=== PATIENT | female | born 1970 | race Caucasian/White ===

== ENCOUNTER → 2017-02-10 | Outpatient (CLI) | payer BC ==
[2017-02-10 12:06] LABS: Basophils % (A) 1 %; CH 30.7; CHCM 33.6; Eosinophils % (A) 1 %; HCT 37.7 % (34.0-46.0); HDW 2.36; Luc # (Auto) 0.08; Luc % (Auto) 2; Lymphocytes # (A) 1.1 k/uL (1.0-4.8); Lymphocytes % (A) 28 %; MCH 31.7 pg (25.0-35.0); MCHC 34.6 g/dL (31.0-37.0); MCV 91.8 fL (80.0-100.0); Mean Platelet Volume 7.1; Monocytes # (A) 0.2 k/uL (0-1.0); Monocytes % (A) 5 %; Neutrophils # (A) 2.6 k/uL (1.3-7.7); Neutrophils % (A) 64 %; RBC 4.11 m/uL (3.80-5.40); RDW 12.4 % (11.5-15.5); WBC (Perox) 4.18
[2017-02-10 12:19] LABS: Anion Gap 8 mmol/L; Blood Urea Nitrogen 20 mg/dL (7-17); Carbon Dioxide 25 mmol/L (22-30); Chloride 108 mmol/L (98-107); Glucose 90 mg/dL (74-99); Non-African American GFR(MDRD) >60 (>60 ml/min/1.73 sqM); Sodium 141 mmol/L (137-145)
== END | disposition home or self-care (01) ==
LOC: LABWHC1 11:39
PROVIDERS: ATTEND Obstetrics & Gynecology
DX: Z01.812 Encounter for preprocedural laboratory examination (principal)
CPT/HCPCS: 80051; 82565; 82947; 84520; 85025; 87086

== ENCOUNTER 2017-02-20 05:46 | Observation (INO) | payer BC ==
--- NOTE | 2017-02-15 14:15 | HP ---
DATE OF SERVICE: 02/20/2017 This is a 46-year-old female, 2, para 1-1-0-2 who presents status post ablation is 2009. The patient has remained amenorrhea but is now having severe cyclic pelvic pain in the midline and in the left lower quadrant. Patient also reports pain to deep penetration at the time of intercourse. She denies any vaginal bleeding or odor. She denies any urinary symptomatology, no hematuria, no dysuria, no urinary frequency. She has normal bowel movements which occur daily, are soft and well-formed. Patient is using over the counter medications including Naprosyn for cyclic pelvic pain but states that she would perform surgical palliation at this time. Review of systems is otherwise negative. Past medical history is negative. PAST SURGICAL HISTORY: [place] teeth extracting per Dr. Burns in 1988, [facility] ablation per Dr. Aly in 2009. CURRENT MEDICATIONS: Multivitamins daily, Naprosyn 500 mg pills 2 with food q.8 hours p.r.n. pelvic pain. ALLERGIES: None known. FAMILY HISTORY: Significant for heart disease in her brother. Hyperlipidemia in her mother and father and hypertension in her father. Reproductive history is significant for 2 vaginal deliveries, one child born with congenital diaphragmatic hernia. SOCIAL HISTORY: Patient has never been a smoker. She enjoys social alcohol only, she denies any illicit drug use. She is single and works with [employer] as a [employer]. On exam, this is a pleasant female, 5 foot 7 inches, 154 pounds, blood pressure 90/69, patient is afebrile. The HEENT exam reveals normal range of motion in the neck. No thyromegaly, no cervical lymphadenopathy. The chest is clear to auscultation in all marino anteriorly and posteriorly with no rales, rhonchi or wheezes. The cardiac exam reveals regular rate and rhythm with no murmur, click or rub. The breasts are bilaterally symmetric to infection with no skin changes, nipple discharge, axillary adenopathy or discernible lesions or masses. Abdominal exam reveals no organosplenomegaly, no ( ) tenderness, active bowel sounds, no evidence of hernia. On genital urinary examination, the external genitalia is normal, while estrogenized and without lesion or discharge. The vagina reveals no inflammatory lesions, no paravaginal defects, normal multiparous appearing cervix. Recent PAP smear is within normal limits. The uterus is tender to palpation. There are no masses noted. The contour is smooth. The position is midline. The adnexa are negative bilaterally. Rectal exam reveals normal sphincter tone, no obvious hemorrhage and no rectal masses. The skin inspection reveals no lesions, no rashes, no areas of discoloration. Neurologic examination reveals patient well oriented x3 with good judgement and intact insight, normal mood and normal affect. Pelvic ultrasound was performed on 01/16/17 revealing normal appearing adnexa sonographically, slightly enlarged uterus with no obvious fibroids, uterine measurements 9.4 x 6.5 x 5.5 cm with an endometrial thickness of 5 mm. IMPRESSION: Suspect adenomyosis with severe cyclic pelvic pain, status post ablation 7 years ago. PLAN: Consideration has been made to laparoscopic approach to hysterectomy; however, I believe the cervix can well be delivered vaginally with no laparoscopic assistance. We will, therefore proceed with vaginal hysterectomy. Ovaries will be inspected and left in situ if they are within normal limits to inspection. The patient does consent to bilateral oophorectomy if clinical judgement would warrant appropriate. We have reviewed the risks of bleeding, infection, perforation or damage to bowel, bladder, ureters, blood vessels or indeed any pelvic or abdominal organs. We have discussed the unlikely but possible need for blood transfusion and the infectious diseases to which she would be exposed. We have reviewed the risks of anesthesia to include aspiration , nerve damage, or even . The ACOG pamphlet on hysterectomy have been given to the patient and she has reviewed these materials. I believe she has no further questions or concerns. A second opinion has been offered and declined. LORENA
[2017-02-16 08:53] VITALS: BMI 23.5
[~2017-02-20 05:46] MED LIST: DEXAMETHASONE SOD PHOSPHATE 10 MG/ML 1 ML VIAL IV ONE; HYDROmorphone 1 MG/ML 1 ML SYRINGE IVP PRN; MIDAZOLAM 2 MG/2 ML VIAL IV PRN; ONDANSETRON 4 MG/2 ML VIAL IVP ONE; ceFAZolin 2 GM in SODIUM CHLORIDE 0.9% 100 ML IVPB ONE
[2017-02-20] MEDS: LACTATED RINGERS 1,000 ML IV SCH ×2 (06:42→20:32)
[2017-02-20] MEDS ORDERED: SCOPOLAMINE 1.5MG/72HR PATCH TRANSDERM ONE (06:42)
[2017-02-20] MEDS ORDERED: MIDAZOLAM 2 MG/2 ML VIAL IVP ONE (07:15)
[2017-02-20] MEDS ORDERED: SUCCINYLCHOLINE CHLORIDE 100 MG/5 ML SYR IV ONE (08:01)
[2017-02-20] MEDS ORDERED: PROPOFOL 10 MG/ML 20 ML VIAL IV ONE (08:01)
[2017-02-20] MEDS ORDERED: fentaNYL (PF) 50 MCG/ML 2 ML AMP ONE (08:01)
[2017-02-20] MEDS ORDERED: KETOROLAC 30 MG/ML 1 ML VIAL ONE (08:01)
[2017-02-20] MEDS ORDERED: MIDAZOLAM 2 MG/2 ML VIAL ONE (08:01)
[2017-02-20] MEDS ORDERED: LIDOCAINE 1% INJ 10MG/ML (20 ML MDV) ONE (08:01)
[2017-02-20] MEDS ORDERED: ePHEDrine 50 MG/ML 1 ML AMP ONE (08:01)
[2017-02-20] MEDS ORDERED: MORPHINE SULFATE (PF) 0.3 MG/0.3 ML SYR ONE (08:01)
[2017-02-20] MEDS ORDERED: BACITRACIN 500 UNIT/GM OINT 28.4 GM TUBE TOPICAL ONE (08:08)
[2017-02-20] MEDS ORDERED: VASOPRESSIN 20 UNIT/ML 1 ML VIAL SQ ONE (08:08)
[2017-02-20] MEDS ORDERED: LACTATED RINGERS 1,000 ML IV ONE (08:54)
[2017-02-20] MEDS ORDERED: IBUPROFEN 600 MG TAB PO PRN (09:14)
[2017-02-20] MEDS ORDERED: Acetaminophen-Codeine 300-30mg TAB PO PRN (09:14)
[2017-02-20] MEDS ORDERED: diphenhydrAMINE 50 MG/ML 1 ML VIAL IVP PRN (09:14)
[2017-02-20] MEDS ORDERED: ONDANSETRON 4 MG/2 ML VIAL IVP PRN (09:14)
[2017-02-20] MEDS ORDERED: SIMETHICONE 80 MG CHEWABLE PO PRN (09:14)
[2017-02-20] MEDS ORDERED: ZOLPIDEM 5 MG TAB PO PRN (09:14)
--- NOTE | 2017-02-20 09:14 | P.OP ---
Date of Procedure: 02/20/17 Preoperative Diagnosis: Severe cyclic pelvic pain, left lower quadrant pain. Postoperative Diagnosis: Pathology pending Procedure(s) Performed: Vaginal hysterectomy, L oophorectomy Implants: Anesthesia: GETA Surgeon: Mulu Oneill Pre K Teacher #1: Blas Matthew Estimated Blood Loss (ml): 150 IV fluids (ml): 600 Urine output (ml): 250 Pathology: other (Cervix, uterus, left ovary) Condition: stable Disposition: PACU Indications for Procedure: Operative Findings: Description of Procedure: Patient is brought to the operating suite after a spinal with Duramorph is placed. She is positioned in the dorsal lithotomy position and a general anesthetic is given. The cervix, vagina, perineum and periurethral areas are all prepped and draped in usual sterile fashion. Antibiotics are given. The appropriate timeout is performed to assure proper patient and procedural identification. Examination under anesthesia reveals an anteverted uterus that is slightly enlarged, negative adnexa bilaterally. The bladder is drained for 150 mL of clear yellow urine. The weighted speculum was placed into the vagina and the cervix is grasped with a double-tooth tenaculum. The cervix is injected circumferentially with a dilute Pitressin solution. A kenaitze blade scalpel was used to incise the mucosa circumferentially with a V like positioning at 6:00. The vaginal mucosa is swept well from the operative field to avoid bladder and/or ureteral injury. The peritoneum is entered posteriorly at 6:00, suture tied with 2-0 Vicryl. The large billed speculum is then placed into the peritoneal cavity. The right uterosacral cardinal ligament is identified, clamped with a Aaliyah clamp, cut and held laterally with a 0 Vicryl suture. The same procedure is carried out contralaterally. Uterine vasculature is identified, clamped cut and suture ligated. 2 additional pedicles are taken superior to the vessels. The anterior peritoneum is entered bluntly. Aaliyah clamps are used across the remaining pedicles and the uterus and cervix are removed and sent to pathology for evaluation. The pedicles are tied with 0 Vicryl suture, flashed, retied for excellent hemostasis. The left ovary is visualized and grasped with a Dimitry clamp. Aaliyah clamp is placed across the ovarian pedicle in the ovary is removed and sent to pathology. The pedicle is suture tied with 0 Vicryl, again for excellent hemostasis. At this time all pedicles are reexamined and noted to be well hemostatically intact. The speculum is changed to the shallow billed speculum. The 2-0 Vicryl suture placed at 6:00 is brought around in a pursestring fashion to close the peritoneum. Please note that the right ovary appears normal to inspection prior to closure of the cuff. The previously held uterosacral cardinal ligament complex these are now brought across to incorporate the opposite complex as well as vaginal mucosa. 3 additional [id number] sutures are used in the vaginal mucosa to close the cuff. Hemostasis is excellent. The vagina is packed with a 1 inch iodophor gauze with basic tracing. The Bai catheter is placed in the urine is noted to be clear, and additional 100 mL obtained. All sponge needle and enhancement counts are correct at the end of this procedure. Patient is brought back to the recovery room in excellent condition with stable vital signs including blood pressure 94/59, pulse 49, 98% O2 saturation. Toradol is given prior to leaving the operative suite.
[2017-02-20] MEDS: KETOROLAC 30 MG/ML 1 ML VIAL IVP PRN ×2 (15:21→23:57)
[2017-02-21] MEDS: LACTATED RINGERS 1,000 ML IV SCH (05:36)
--- NOTE | 2017-02-21 07:07 | P.DS ---
Providers Date of admission: 02/21/17 04:03 Expected date of discharge: 02/21/17 Attending physician: Mulu Oneill Primary care physician: [facility] Course: This is a 46-year-old white female who presented with a history of cyclic severe pelvic pain, notably in the left lower quadrant. She is status post ablation years ago. Preoperative evaluation was consistent with adenomyosis, and patient elected to proceed with vaginal hysterectomy and left oophorectomy. Please see my dictated history and physical for details. Patient underwent a vaginal hysterectomy and left oophorectomy under my care on 02/20/2017. The surgery was unremarkable. The vagina was packed with iodoform gauze, Bai catheter placed. Please see dictated operative note for details. This morning the patient is doing well. She is ambulating, voiding, passing flatus without difficulty. Vital signs are stable and she remains afebrile. Chest is clear in all marino, extremities are negative. Pain is well controlled. She is being discharged home therefore in very good condition. She will follow- up with me in the office in 2 weeks. I have reminded her no intercourse, tampons or douching. She will use [id number] ibuprofen products as needed for pain. I have reminded her to call with any issues, any vaginal bleeding, any pain not alleviated by [id number] products, or indeed any concerns. Pathology report is pending at the time of this dictation. Patient Condition at Discharge: Good Plan - Discharge Summary New Discharge Prescriptions: No Action Naproxen Sodium [Anaprox DS] 550 mg PO Q12HR PRN PRN Reason: Pain Multivitamins, Thera [Multivitamin (formulary)] 1 tab PO DAILY Discharge Medication List Multivitamins, Thera [Multivitamin (formulary)] 1 tab PO DAILY 02/16/17 [History ] Naproxen Sodium [Anaprox DS] 550 mg PO Q12HR PRN 02/16/17 [History] Follow up Appointment(s)/Referral(s): uMlu Oneill MD [STAFF PHYSICIAN] - 2 Weeks Patient Instructions/Handouts: *Surgery [facility] - Scopalamine Patch Instructions Discharge Disposition: HOME SELF-CARE
[2017-02-21 09:01] VITALS: PULSE 68
[2017-02-21 09:13] VITALS: RESP 16; TEMP 98.8
[2017-02-21 09:28] VITALS: BP 92/62
== END 2017-02-21 09:32 | disposition home or self-care (01) ==
LOC: OR 05:46 → 6PED 09:11 → OR 02-21 04:02 → 6PED 02-21 04:03
PROVIDERS: ADMIT Obstetrics & Gynecology; ATTEND Obstetrics & Gynecology
DX: N80.0 Endometriosis of uterus (principal); D25.2 Subserosal leiomyoma of uterus; N91.2 Amenorrhea, unspecified
CPT/HCPCS: 81025; 86900; 86901; 86850; 88307; 58262; G0378; J2250; J1100; J0690; J2405; J2001; J2274; J3010; J1885; J1170; J0330; J2704

== ENCOUNTER → 2017-04-12 | Outpatient (CLI) | payer BC ==
--- NOTE | 2017-04-13 09:17 | MM ---
Reason for exam: screening (asymptomatic). Last mammogram was performed 1 year ago. Physical Findings: A clinical breast exam by your physician is recommended on an annual basis and results should be correlated with mammographic findings. MG Screening Mammo w CAD Bilateral CC and MLO view(s) were taken. XCCL view(s) were taken of the right breast. Prior study comparison: April 03, 2016, bilateral MG screening mammo w CAD. March 17, 2015, bilateral MG screening mammo w CAD. The breast tissue is heterogeneously dense. This may lower the sensitivity of mammography. Asymmetric breast tissue in the right breast stable since 2012 posterior aspect. There is no discrete abnormality. ASSESSMENT: Negative, BI-RAD 1 RECOMMENDATION: Routine screening mammogram of both breasts in 1 year.
== END | disposition home or self-care (01) ==
LOC: RADMAMWWP 08:35
PROVIDERS: ATTEND Obstetrics & Gynecology
DX: Z12.31 Encounter for screening mammogram for malignant neoplasm of breast (principal)

== ENCOUNTER → 2017-08-25 | Outpatient (CLI) | payer BC ==
[2017-08-25 11:50] LABS: HCT 38.4 % (34.0-46.0); HGB 12.6 gm/dL (11.4-16.0); MCH 30.3 pg (25.0-35.0); MCHC 32.8 g/dL (31.0-37.0); MCV 92.5 fL (80.0-100.0); Mean Platelet Volume 7.3; Platelet Count 216 k/uL (150-450); RBC 4.15 m/uL (3.80-5.40); RDW 13.2 % (11.5-15.5)
[2017-08-25 11:54] LABS: Appearance,Urine Cloudy (Clear); Bacteria,Urine Many /hpf; Bilirubin,Urine Negative (Negative); Blood,Urine Trace (Negative); Color,Urine Yellow; Glucose,Urine (UA) Negative (Negative); Ketones,Urine Negative (Negative); Leukocyte Esterase,Urine Negative (Negative); Mucus,Urine Many /hpf; Nitrite,Urine Negative (Negative); PH, Urine 5.5 (5.0-8.0); Protein,Urine Trace (Negative); RBC,Urine 6 /hpf (0-5); Specific Gravity,Urine 1.021 (1.001-1.035); Squamous Epithelial Cell,Urine 8 /hpf (0-4); Urobilinogen,Urine <2.0 mg/dL (<2.0); WBC,Urine 2 /hpf (0-5)
[2017-08-25 12:06] LABS: ALT 33 U/L (9-52); AST 15 U/L (14-36); Albumin 4.1 g/dL (3.5-5.0); Alkaline Phosphatase 63 U/L (38-126); Anion Gap 9 mmol/L; Blood Urea Nitrogen 19 mg/dL (7-17); Calcium 9.5 mg/dL (8.4-10.2); Carbon Dioxide 27 mmol/L (22-30); Chloride 105 mmol/L (98-107); Cholesterol 171 mg/dL (<200); Glucose 89 mg/dL (74-99); HDL Cholesterol 58 mg/dL (40-60); LDL Cholesterol,Calculated 104 mg/dL (0-99); Potassium 4.1 mmol/L (3.5-5.1); Sodium 141 mmol/L (137-145); Total Bilirubin 0.3 mg/dL (0.2-1.3); Total Protein 6.8 g/dL (6.3-8.2); Triglycerides 47 mg/dL (<150)
== END | disposition home or self-care (01) ==
LOC: LABWHC1 11:06
PROVIDERS: ATTEND Family Medicine
DX: Z00.00 Encounter for general adult medical examination without abnormal findings (principal)
CPT/HCPCS: 36415; 80053; 80061; 81001; 82306; 85027

== ENCOUNTER → 2018-06-26 | Outpatient (CLI) | payer BC ==
--- NOTE | 2018-06-27 12:17 | MM ---
Reason for exam: screening (asymptomatic). Last mammogram was performed 1 year and 2 months ago. Physical Findings: A clinical breast exam by your physician is recommended on an annual basis and results should be correlated with mammographic findings. MG 3D Screening Mammo W/Cad Bilateral CC and MLO view(s) were taken. Prior study comparison: April 12, 2017, bilateral MG screening mammo w CAD. April 03, 2016, bilateral MG screening mammo w CAD. The breast tissue is extremely dense which could obscure a lesion on mammography. There is chronic nodularity bilaterally. There is no dominant lesion. No significant changes when compared with prior studies. ASSESSMENT: Benign, BI-RAD 2 RECOMMENDATION: Routine screening mammogram of both breasts in 1 year.
== END | disposition home or self-care (01) ==
LOC: RADMAMWWP 16:46
PROVIDERS: ATTEND Obstetrics & Gynecology
DX: Z12.31 Encounter for screening mammogram for malignant neoplasm of breast (principal)
CPT/HCPCS: 77063; 77067

== ENCOUNTER → 2020-09-27 | Outpatient (CLI) | payer BC ==
--- NOTE | 2020-09-29 08:45 | MM ---
Reason for exam: screening (asymptomatic). Last mammogram was performed 2 years and 3 months ago. Physical Findings: A clinical breast exam by your physician is recommended on an annual basis and results should be correlated with mammographic findings. MG 3D Screening Mammo W/Cad Bilateral CC and MLO view(s) were taken. Prior study comparison: June 26, 2018, bilateral MG 3d screening mammo w/cad. April 12, 2017, bilateral MG screening mammo w CAD. The breast tissue is extremely dense which could obscure a lesion on mammography. No significant changes when compared with prior studies. ASSESSMENT: Benign, BI-RAD 2 RECOMMENDATION: Routine screening mammogram of both breasts in 1 year.
== END | disposition home or self-care (01) ==
LOC: RADMAMWWP 08:09
PROVIDERS: ATTEND Obstetrics & Gynecology
DX: Z12.31 Encounter for screening mammogram for malignant neoplasm of breast (principal)
CPT/HCPCS: 77063; 77067

== ENCOUNTER → 2021-11-30 | Outpatient (CLI) | payer BC ==
--- NOTE | 2021-12-01 12:25 | MM ---
Reason for exam: screening (asymptomatic). Last mammogram was performed 1 year and 2 months ago. Physical Findings: A clinical breast exam by your physician is recommended on an annual basis and results should be correlated with mammographic findings. MG 3D Screening Mammo W/Cad Bilateral CC and MLO view(s) were taken. Prior study comparison: September 27, 2020, bilateral MG 3d screening mammo w/cad. June 26, 2018, bilateral MG 3d screening mammo w/cad. April 12, 2017, bilateral MG screening mammo w CAD. The breast tissue is heterogeneously dense. This may lower the sensitivity of mammography. Finding: There is a 5 mm high density, round mass located 3 cm from the nipple in the right breast, lateral on CC view. New finding since September 27, 2020, June 26, 2018, and April 12, 2017. ASSESSMENT: Incomplete: need additional imaging evaluation, BI-RAD 0 RECOMMENDATION: Ultrasound of the right breast. [facility] will attempt to contact patient to return for ultrasound.
== END | disposition home or self-care (01) ==
LOC: RADMAMWWP 16:48
PROVIDERS: ATTEND Family Medicine
DX: Z12.31 Encounter for screening mammogram for malignant neoplasm of breast (principal)
CPT/HCPCS: 77063; 77067

== ENCOUNTER → 2021-12-12 | Outpatient (CLI) | payer BC ==
--- NOTE | 2021-12-13 08:59 | USB ---
Reason for exam: additional evaluation requested from abnormal screening. Physical Findings: A clinical breast exam by your physician is recommended on an annual basis and results should be correlated with mammographic findings. US Breast Workup Limited RT Right limited breast ultrasound including focal area of concern, retroareolar and axilla demonstrates a 0.6 x 0.4 x 0.4cm lesion at 9 o'clock. Lower outer quadrant right breast scanned. Results were given to the patient verbally at the time of the exam. ASSESSMENT: Probably benign, BI-RAD 3 RECOMMENDATION: Follow-up diagnostic mammogram and ultrasound of the left breast in 6 months.
== END | disposition home or self-care (01) ==
LOC: RADUSWWP 13:36
PROVIDERS: ATTEND Family Medicine
DX: N64.89 Other specified disorders of breast (principal)

== ENCOUNTER → 2022-06-23 | Outpatient (CLI) | payer BC ==
--- NOTE | 2022-06-23 14:51 | MM ---
Reason for Exam: Follow-up at short interval from prior study. Last screening mammogram was performed 7 month(s) ago. Patient History: Menarche at age 14. First Full-Term at age 28. Left ovary removed at age 46. Hysterectomy at age 46. Risk Values: Keya 5 year model risk: 1.0%. NCI Lifetime model risk: 10.0%. Prior Study Comparison: 06/26/2018 Bilateral Screening Mammogram, [facility]. 09/27/2020 Bilateral Screening Mammogram, [facility]. 11/30/2021 Bilateral Screening Mammogram, [facility]. Tissue Density: Right: The breast tissue is heterogeneously dense. This may lower the sensitivity of mammography. Findings: Analyzed By CAD. No evidence for mass or suspicious cluster of microcalcifications. No distortion. Overall Assessment: Incomplete: need additional imaging evaluation, BI-RAD 0 Management: Diagnostic Breast Ultrasound of the right breast. A clinical breast exam by your physician is recommended on an annual basis and results should be correlated with mammographic findings. This exam should not preclude additional follow-up of suspicious palpable abnormalities. Results were given to the patient verbally at the time of exam. Electronically signed and approved by: Akin Knutson M.D. Radiologis
--- NOTE | 2022-06-23 14:56 | USB ---
Reason for Exam: Additional evaluation requested from prior study. Patient History: Menarche at age 14. First Full-Term at age 28. Left ovary removed at age 46. Hysterectomy at age 46. Risk Values: Keya 5 year model risk: 1.0%. NCI Lifetime model risk: 10.0%. Technique: Method: Targeted. Prior Study Comparison: 06/26/2018 Bilateral Screening Mammogram, [facility]. 09/27/2020 Bilateral Screening Mammogram, [facility]. 11/30/2021 Bilateral Screening Mammogram, [facility]. Findings: The lower outer quadrant of the right breast, the axilla of the right breast and the retroareolar of the right breast were scanned. No solid or cystic masses are identified.. Overall Assessment: Negative, BI-RAD 1 Management: Screening Mammogram of both breasts in 6 months. A clinical breast exam by your physician is recommended on an annual basis and results should be correlated with mammographic findings. This exam should not preclude additional follow-up of suspicious palpable abnormalities. Results were given to the patient verbally at the time of exam. Electronically signed and approved by: Akin Knutson M.D. Radiologis
== END | disposition home or self-care (01) ==
LOC: RADMAMWWP 14:19
PROVIDERS: ATTEND Family Medicine
DX: R92.8 Other abnormal and inconclusive findings on diagnostic imaging of breast (principal); Z90.721 Acquired absence of ovaries, unilateral
CPT/HCPCS: 77061; 77065

== ENCOUNTER → 2022-10-28 | Outpatient (CLI) | payer BC ==
[2022-10-28 17:37] LABS: HCT 39.4 % (37.2-46.3); HGB 12.4 g/dL (12.0-15.0); MCH 29.9 pg (27.0-32.0); MCHC 31.5 g/dL (32.0-37.0); MCV 94.9 fL (80.0-97.0); NRBC Per 100 WBC 0 /100 WBCS (0.0-0.0); Platelet Count 245 X 10*3/uL (140-440); RBC 4.15 X 10*6/uL (4.10-5.20); RDW 12.7 % (11.5-14.5); WBC 5.14 X 10*3/uL (4.50-10.00)
[2022-10-28 18:08] LABS: ALT 14 U/L (8-44); AST 16 U/L (13-35); African American GFR (CKD) 109.9 (60.0-200.0); Albumin 4.4 g/dL (3.8-4.9); Albumin/Globulin Ratio 2.01 (1.60-3.17); Alkaline Phosphatase 89 U/L (41-126); BUN/Creat Ratio 27.09 Ratio (12.00-20.00); Blood Urea Nitrogen 20.1 mg/dL (9.0-27.0); Calcium 9.9 mg/dL (8.7-10.3); Carbon Dioxide 29.6 mmol/L (20.0-27.5); Chloride 102 mmol/L (96-109); Chol/HDL Ratio 3.08 Ratio; Globulin 2.2 g/dL (1.6-3.3); Glucose 87 mg/dL (70-110); LDL Cholesterol,Calculated 110.8 mg/dL (0.0-131.0); Non-African American GFR(CKD) 94.8 (60.0-200.0); Potassium 4.1 mmol/L (3.5-5.5); Sodium 141 mmol/L (135-145); Total Protein 6.6 g/dL (6.2-8.2)
[2022-10-28 21:27] LABS: Appearance,Urine Clear (Clear); Bilirubin,Urine Negative (Negative); Blood,Urine Negative (Negative); Color,Urine Yellow (Yellow); Ketones,Urine Negative (Negative); Nitrite,Urine Negative (Negative); Specific Gravity,Urine 1.013 (1.001-1.030); Urobilinogen,Urine 0.2 (0.2,1.0)
== END | disposition home or self-care (01) ==
LOC: LABWHC1 09:01
PROVIDERS: ATTEND Family Medicine
DX: Z00.00 Encounter for general adult medical examination without abnormal findings (principal)
CPT/HCPCS: 36415; 80053; 80061; 81003; 82306; 83036; 85027

== ENCOUNTER → 2022-12-06 | Outpatient (CLI) | payer BC ==
--- NOTE | 2022-12-07 20:08 | MM ---
Reason for Exam: Screening (asymptomatic). Last screening mammogram was performed 12 month(s) ago. Patient History: Menarche at age 14. First Full-Term at age 28. Left ovary removed at age 46. Hysterectomy at age 46. Risk Values: Keya 5 year model risk: 1.1%. NCI Lifetime model risk: 9.9%. Prior Study Comparison: 09/27/2020 Bilateral Screening Mammogram, [facility]. 11/30/2021 Bilateral Screening Mammogram, [facility]. 06/23/2022 Right MG 3D diag mammo w/cad RT, [facility]. Tissue Density: The breast tissue is heterogeneously dense. This may lower the sensitivity of mammography. Findings: Analyzed By CAD. Redemonstrated mole along the inferior aspect of the left breast. There is no suspicious group of microcalcifications or new suspicious mass in either breast. Overall Assessment: Benign, BI-RAD 2 Management: Screening Mammogram of both breasts in 1 year. 1. Patient should continue monthly self breast exams. 2. A clinical breast exam by your physician is recommended on an annual basis. 3. This exam should not preclude additional follow-up of suspicious palpable abnormalities. Electronically signed and approved by: Saúl Billings M.D. Radiologist
== END | disposition home or self-care (01) ==
LOC: RADMAMWWP 16:31
PROVIDERS: ATTEND Family Medicine
DX: Z12.31 Encounter for screening mammogram for malignant neoplasm of breast (principal)
CPT/HCPCS: 77063; 77067

== ENCOUNTER → 2023-10-08 | Outpatient (CLI) | payer BC ==
--- NOTE | 2023-10-08 08:09 | MR ---
EXAMINATION TYPE: MR shoulder LT wo con DATE OF EXAM: 10/08/2023 COMPARISON: No radiographic correlation available HISTORY: 52-year-old female M75.102, Left shoulder pain, decreased ROM, repetitive work. TECHNIQUE: Multiplanar, multisequence imaging of the left shoulder is performed without contrast. FINDINGS: There is a split tear of the intracapsular portion of the long head biceps tendon. The extr acapsular portion remains appropriately such with along the bicipital groove with mild tenosynovial f luid. Heterogeneous signal throughout the subscapularis tendon with some intrasubstance change at the infer ior footprint. The tendon appears intact. There is moderate degenerative change of the acromioclavicular joint with joint space narrowing, caps ular hypertrophy, and marginal spurring. The hypertrophic changes impress on the myotendinous junctio n of the supraspinatus. There is trace thickening of the subacromial/subdeltoid bursa with bursal sided fraying throughout th e supraspinatus tendon. No high-grade partial or full-thickness tear is seen of either supraspinatus or infraspinatus tendons. No rotator cuff muscle atrophy. There is some edema along the axillary recess but without any significant abnormal thickening. Some edematous soft tissue replacement in the region of the rotator cuff interval also noted. Areas of mild thinning of articular cartilage within the glenohumeral joint. No significant joint eff usion. No Hill-Sachs deformity or os acromiale. No suspicious bone marrow replacement. IMPRESSION: 1. Subscapularis tendinosis along with bursal sided fraying along the supraspinatus tendon. No high-g rade partial or full-thickness rotator cuff tear. 2. 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 3. Split tear of the intracapsular portion of the long biceps tendon. 4. Some edematous soft tissue replacement in the region of the rotator cuff interval along with some edema at the axillary recess. Correlate for the possibility of adhesive capsulitis. Sprain of the inf erior glenohumeral ligament and biceps elma or synovitis are also considerations.
== END | disposition home or self-care (01) ==
LOC: RADMRIMAIN 06:32
PROVIDERS: ATTEND Family Medicine
DX: M75.102 Unspecified rotator cuff tear or rupture of left shoulder, not specified as traumatic (principal); M67.814 Other specified disorders of tendon, left shoulder; M19.012 Primary osteoarthritis, left shoulder; R60.9 Edema, unspecified; Z96.612 Presence of left artificial shoulder joint

== ENCOUNTER → 2023-12-11 | Outpatient (CLI) | payer BC ==
--- NOTE | 2023-12-12 08:00 | MM ---
Reason for Exam: Screening (asymptomatic). Last screening mammogram was performed 12 month(s) ago. Patient History: Menarche at age 14. First Full-Term at age 28. Left ovary removed at age 46. Hysterectomy at age 46. Risk Values: Keya 5 year model risk: 1.1%. NCI Lifetime model risk: 9.7%. Prior Study Comparison: 11/30/2021 Bilateral Screening Mammogram, [facility]. 06/23/2022 Right MG 3D diag mammo w/cad RT, [facility]. 12/06/2022 Bilateral MG 3D screening mammo w/cad, [facility]. Tissue Density: The breasts are heterogeneously dense, which may obscure small masses. Findings: Analyzed By CAD. Right breast: There is no suspicious group of microcalcifications or new suspicious mass. Left breast: There is no suspicious group of microcalcifications or new suspicious mass. Overall Assessment: Negative, BI-RAD 1 Management: Screening Mammogram of both breasts in [address] [facility] will attempt to contact patient to return for supplemental views and ultrasound if indicated. Patient should continue monthly self-breast exams. A clinical breast exam by your physician is recommended on an annual basis. This exam should not preclude additional follow-up of suspicious palpable abnormalities. Note on Keya scores and lifetime risk: 1. A Keya score greater than 3% is considered moderate risk. If this is the case, consider specialist referral to assess eligibility for a risk reducing agent. 2. If overall lifetime risk for the development of breast cancer is 20% or higher, the patient may qualify for future screening with alternating mammogram and breast MRI. Electronically signed and approved by: Alex Coombs DO
== END | disposition home or self-care (01) ==
LOC: RADMAMWWP 08:50
PROVIDERS: ATTEND Family Medicine
DX: Z12.31 Encounter for screening mammogram for malignant neoplasm of breast (principal)
CPT/HCPCS: 77063; 77067

== ENCOUNTER → 2024-12-23 | Outpatient (CLI) | payer BC ==
--- NOTE | 2024-12-24 07:53 | MM ---
Reason for Exam: Screening (asymptomatic). Last mammogram was performed 1 year(s) and 1 month(s) ago. Patient History: Menarche at age 14. First Full-Term at age 28. Left ovary removed at age 46. Hysterectomy at age 46. Risk Values: Keya 5 year model risk: 1.2%. NCI Lifetime model risk: 9.6%. Prior Study Comparison: 06/23/2022 Right MG 3D diag mammo w/cad RT, [facility]. 12/06/2022 Bilateral MG 3D screening mammo w/cad, [facility]. 12/11/2023 Bilateral MG 3D screening mammo w/cad, [facility]. Tissue Density: The breasts are heterogeneously dense, which may obscure small masses. Findings: Analyzed By CAD. There is no suspicious group of microcalcifications or new suspicious mass in either breast. Overall Assessment: Negative, BI-RAD 1 Management: Screening Mammogram of both breasts in 1 year. . Patient should continue monthly self-breast exams. A clinical breast exam by your physician is recommended on an annual basis. This exam should not preclude additional follow-up of suspicious palpable abnormalities. Note on Keya scores and lifetime risk: 1. A Keya score greater than 3% is considered moderate risk. If this is the case, consider specialist referral to assess eligibility for a risk reducing agent. 2. If overall lifetime risk for the development of breast cancer is 20% or higher, the patient may qualify for future screening with alternating mammogram and breast MRI. [facility], , 12/24/2024 7:50 AM. Electronically signed and approved by: Hakan Wells M.D.
== END | disposition home or self-care (01) ==
LOC: RADMAMWWP 16:38
PROVIDERS: ATTEND Family Medicine
DX: Z12.31 Encounter for screening mammogram for malignant neoplasm of breast (principal); R92.333 Mammographic heterogeneous density, bilateral breasts
CPT/HCPCS: 77063; 77067